=== PATIENT | female | born 1945 | race Caucasian/White ===

== ENCOUNTER 2017-03-24 14:07 | Inpatient (IN) | payer OTHER ==
[~2017-03-24] VITALS: Ht 162.6 cm; Wt 76.5 kg
[2017-03-24 14:10] VITALS: BP 133/83; PULSE 65; RESP 16; O2SAT 96
[2017-03-24] MEDS ORDERED: Ondansetron 2 mg/mL 2 mL Inj IVPUSH ONE (14:25)
--- NOTE | 2017-03-24 14:27 | ED.REPORT ---
HPI-Hip/Pelvis Prob/Inj Date of Service March 24, 2017 ED Provider: Deepak Russo MD History of Present Illness: YouNoodle crashing repeatedly, IT aware Patient is a 71 year old female with a history of hypertension who presents to the ED due to a fall. Associated symptoms include right hip, knee pain and unable to bear weight on the leg. She denies dizziness, lightheadedness, chest pain, shortness of breath, losing consciousness, weakness or numbness. Patient states that the pain is exacerbated by movement. The patient reports that she tripped and twisted while falling on the ground. She is not currently on anticoagulants. Nursing Notes Stated Complaint: FALL, HIP PAIN Chief Complaint: Multiple Trauma/Fall Nursing Notes Reviewed: Yes ([employer] not reconciled) Allergies: Coded Allergies: No Known Allergies (Unverified , 03/24/17) Scheduled Ibuprofen (Ibuprofen) 200 Mg Capsule 200-600 MG PO DAILYWL Krill/Om3/Dha/Epa/Om6/Lip/Astx (Krill Oil 1,000 mg Softgel) 1 Each Capsule 2 EACH PO QAM Metoprolol Tartrate (Metoprolol Tartrate) 25 Mg Tablet 12.5 MG PO BID Scheduled PRN Methyl Salicylate/Menthol (Icy Hot Cream) 35.4 Gm Cream..g. 1 APPLIC TP BID PRN PRN ARTHRITIS TO JOINTS General Time Seen by Provider: 14:20 Chief Complaint Hip injury right Hx Obtained From: Patient Onset Occurred: Just prior to arrival Symptom Duration: Since onset Caused by: Fall on ground Severity: Current: Moderate Associated with: Reports: Unable to walk Recent Healthcare: No recent doctor visit, No recent hospitalization Similar Sx Previous: No Past Medical History Past Medical History Notes: His only medication is metoprolol tartrate 12.5 mg twice a day, and she occasionally takes when necessary Advil for arthritis of the hands Past Medical History Severe aortic stenosis by echocardiogram with cardiology having recommended repair, but the patient is a client based on the fact that she claims she is asymptomatic Patient also has moderate to severe ascending aortic enlargement with mildly dilated arch up to 4.8 cm "Rheumatoid arthritis" of the hands not on any medications aside from occasional Advil Reports: Hypertension Past Surgical History Denies Smoking History Former Smoker (quit years ago) Social History Alcohol Use: Denies alcohol use Drug Use: Denies drug use Other Social History: Good social support, , Local resident Ambulatory Status Independent Review of Systems Musculoskeletal: Reports: Extremity pain (right hip) Neurologic: Reports: Problem walking, Denies: Dizziness, Numbness, Weakness Complete sys rev & neg: except as marked. Respiratory: Denies: Non-productive cough, Shortness of breath Cardiovascular: Denies: Chest pain Physical Exam Initial Vital Signs Vital Signs (First) Date Time Temp Pulse Resp B/P Pulse Ox O2 Delivery O2 Flow Rate FiO2 03/24/17 14:10 36.6 65 16 133/83 96 Room Air Initial VS: Reviewed, Vital signs normal Lower Extremity / Pelvis / MS: Neurologic intact, Vascular intact holding hip, slightly flexed decreased range of motion in pain with movement was unable to bear weight General/Constitutional: Awake, Alert, Well appearing Head / Eyes: Atraumatic, Normocephalic, PERRL, EOMI Respiratory / Chest: Atraumatic, No respiratory distress Back: Atraumatic, Full range of motion Skin: Atraumatic, Color NL, No rash, Warm, Dry Neurologic Neurologic: Oriented X3, Speech NL, No motor deficits, No sensory deficits Upper Extremity / MS: Atraumatic, Full range of motion The patient does have rheumatoid changes of the hands and fingers Psychiatric: Affect NL, Mood NL Interpretation & Diagnostics Lab Results Interpretation Result Diagram: 03/24/17 1440 03/24/17 1440 Test 03/24/17 14:40 03/24/17 15:55 White Blood Count 8.2th/mm3 (3.8-10.1) Red Blood Count 4.03mil/mm3 (3.90-5.20) Hemoglobin 13.4g/dL (12.0-15.6) Hematocrit 38.4% (35.0-46.0) Mean Corpuscular Volume 95.3fL (81-100) Mean Corpuscular Hemoglobin 33.3pg (27.0-35.0) Mean Corpuscular Hemoglobin Concent 34.9% (32.0-37.0) Red Cell Distribution Width 12.0% (12.3-15.4) Platelet Count 183bil/L (150-400) Neutrophils (%) (Auto) 75.5% (40-74) Lymphocytes (%) (Auto) 15.4% (14-46) Monocytes (%) (Auto) 5.2% (4-12) Eosinophils (%) (Auto) 2.9% (0-5) Basophils (%) (Auto) 0.2% (0-3) Hold Purple Top Tube Received (Received) Prothrombin Time 10.2sec (8.1-12.5) Prothromb Time International Ratio 0.95ratio Hold Blue Top Tube Received (Received) Sodium Level 135mEq/L (134-144) Potassium Level 4.2mEq/L (3.5-5.2) Chloride Level 100mEq/L (97-108) Carbon Dioxide Level 20mmol/L (18-29) Blood Urea Nitrogen 18mg/dL (8-27) Creatinine 0.78mg/dL (0.57-1.00) Estimat Glomerular Filtration Rate 104mL/min (>59) Glucose Level 114mg/dL (60-99) Calcium Level 9.4mg/dL (8.5-10.1) Total Bilirubin 0.9mg/dL (0.0-1.2) Aspartate Amino Transf (AST/SGOT) 31U/L (0-50) Alanine Aminotransferase (ALT/SGPT) 19U/L (0-32) Alkaline Phosphatase 61U/L (25-165) Total Protein 7.2g/dL (6.4-8.4) Albumin 4.0g/dL (3.4-5.0) Hold [place] Top Tube Received (Received) Hold See Top Tube Received (Received) Urine Color Yellow (YELLOW) Urine Appearance Clear (CLEAR,HAZY) Urine pH 5.5 (5.0-8.0) Urine Specific [place] 1.020 (1.003-1.035) Urine Protein Negativemg/dL (NEG,TRACE) Urine Glucose (UA) Negativemg/dL (NEGATIVE) Urine Ketones 15mg/dL (NEGATIVE) Urine Occult Blood Trace (NEGATIVE) Urine Nitrite Negative (NEGATIVE) Urine Bilirubin Negative (NEGATIVE) Urine Urobilinogen Normalmg/dL (NORMAL) Urine Leukocyte Esterase Negative (NEGATIVE) Urine RBC 0-2/hpf (0-2) Urine WBC 0-5/hpf (0-5) Urine Epithelial Cells Few/hpf (NONE-MOD) Urine Crystals None seen (NONE SEEN) Urine Bacteria Few/hpf (NONE-FEW) Urine Hyaline Casts None/lpf (NONE) Urine Granular Casts None seen (NONE SEEN) Urine Waxy Casts None seen (NONE SEEN) Urine Red Blood Cell Casts None seen (NONE SEEN) Urine White Blood Cell Casts None seen (NONE SEEN) Urine Mucus None seen (None Seen) Urine Trichomonas None seen (NONE SEEN) Urine Yeast None (NONE SEEN) Urinalysis Comment None Urine Culture Reflexed Not indicated Lab Results Interpretation: CBC normal CMP normal INR normal ECG Interpretation ECG Interpretation: Normal sinus rhythm, Q waves anteriorly, no prior EKG available for me to compare, no acute process identified Time: 15:35 Interpreted by: ED physician Re-Eval/Medical Decision Med Decision/Clinical Course This is a 71-year-old female who tripped and fell landing on her right hip. She denies any other injury, she denied any antecedent symptoms, reports she simply tripped over a raised curb. She denies any other injuries. She has not been unable to ambulate. She is not on any anticoagulants. Her only medication is metoprolol which she takes for "a heart problem" which she just says is asymptomatic valvular disease. The patient is hemodynamically normal. She has severe pain moving her to the gurney, and has pain with motion of the right hip. The leg is neurovascular intact. Radiographs reveal a right intertrochanteric hip fracture per my interpretation. Patient received titrated pain medicine. She is being admitted for further management. The orthopedist is being paged Source of Hx: Old records Re-Evaluation/Progress : Time of Eval: 15:35 Re-Evaluation/Progress Note: Discussed results and plan for admit. The patient understands and agrees to the plan for admit. All questions were addressed. Consultation #1: Referral / Consult Name: Pineda Sierra MD Consulted With: Orthopedic Call Returned at: 15:48 Security Project Manager: Will see patient Note: Requests admission to medicine service. Due to history of aortic stenosis request cardiology consultation for medical clearance prior to operative repair. Consultation #2: Referral / Consult Name: Shelton Wilson MD Consulted With: Cardiology Call Returned at: 16:03 Security Project Manager: Will see patient Note: Discussed consultation request for preoperative clearance in the setting of severe aortic stenosis prior to the patient's going to the OR for orthopedic repair of the right hip Consultation #3: Referral / Consult Name: Osvaldo Macias MD Consulted With: Hospitalist Call Returned at: 16:23 Security Project Manager: Accepts admit Note: Case discussed Differential Diagnosis: Positive: Fx intertrochanteric, Negative: Abrasion, Arterial occlus/ischemia, Cellulitis, Compartment syndrome, Fx acetabulum, Fx sacrum, Hemarthrosis, Laceration, Neurovascular injury, Open fracture, Osteoarthritis, Osteomyelitis Counseled Regarding: Diagnosis, Lab results, Need for admission Discharge & Departure Impression: Primary Impression: Closed intertrochanteric fracture of right hip Encounter type: initial encounter Qualified Code: S72.141A - Displaced intertrochanteric fracture of right femur, initial encounter for closed fracture Additional Impression: Fall from ground level Disposition: ADMITTED TO HOSPITAL Discharge Condition All VS Reviewed: Yes Condition: Stable Referrals: Maggie Rae MD Attestation Portions of this note were transcribed by Lisa Cornelius. I, Dr. Russo personally performed the history, physical exam and medical decision-making; I reviewed and confirmed the accuracy of the information in the transcribed note. Signed by: Shady Oshea, 03/24/17 and 1534 copies to: Maggie Rae MD, Matthew F MD March 24, 2017 14:27 Jenny Cornelius March 24, 2017 14:38
[2017-03-24] MEDS: HYDROmorphone 0.5 mg/0.5 mL iSecure Syringe IVPUSH PRN ×2 (14:46→15:05)
[2017-03-24] MEDS ORDERED: Lidocaine 2% 6mL Topical Jelly TOPICAL ONE (15:35)
[2017-03-24 15:47] LABS: BASOPHILS % (AUTO) 0.2 % (0-3); EOSINOPHILS % (AUTO) 2.9 % (0-5); MONOCYTES % (AUTO) 5.2 % (4-12); Mean Corpuscular Hemoglobin 33.3 pg (27.0-35.0); Mean Corpuscular Volume 95.3 fL (81-100); NEUTROPHILS % (AUTO) 75.5 % (40-74); Platelet Count 183 bil/L (150-400)
[2017-03-24 15:50] LABS: INR 0.95 ratio
[2017-03-24] MEDS ORDERED: METO25TA6 PO (15:59)
[2017-03-24] MEDS ORDERED: KRIL1CAP PO (16:05)
[2017-03-24] MEDS ORDERED: IBUP200C PO (16:05)
[2017-03-24] MEDS ORDERED: METH35.42 TP (16:07)
--- NOTE | 2017-03-24 16:08 | DRSVH ---
PROCEDURE: X-RAY PELVIS W/LAT HIP (RT) ([id number]) INDICATIONS: pain TECHNIQUE: AP pelvis with lateral view(s) of the right hip(s). COMPARISON: None. FINDINGS: Bones: Right intertrochanteric femoral neck fracture with varus attenuation of the distal fragment. N o involvement of the articular surface. Degenerative changes in both hips and the lumbar spine.. Pel chris ring appears intact. No suspicious bony lesions. Soft tissues: The visualized bowel gas pattern is normal. No suspicious soft tissue calcifications. IMPRESSION: Intertrochanteric right femoral neck fracture with varus angulation. Dictated by: Julio César Sotelo M.D. on 03/24/2017 at 16:06 Approved by: Julio César Sotelo M.D. on 03/24/2017 at 16:07
[2017-03-24 16:19] LABS: APPEARANCE,URINE CLEAR (CLEAR,HAZY); COLOR,URINE YELLOW (YELLOW); OCCULT BLOOD,URINE TRACE (NEGATIVE); PH,URINE 5.5 (5.0-8.0); UROBILINOGEN,URINE NORMAL (NORMAL)
[2017-03-24] MEDS ORDERED: Alum-Mag Hydrox-Simeth 30 mL Suspension PO PRN (16:35)
[2017-03-24] MEDS ORDERED: Polyethylene Glycol (PEG) 17 Gm Powder PO PRN (16:35)
[2017-03-24] MEDS ORDERED: Ondansetron 2 mg/mL 2 mL Inj IVPUSH PRN (16:35)
[2017-03-24 16:36] VITALS: BP 131/70; PULSE 73; RESP 17; O2SAT 96
--- NOTE | 2017-03-24 16:42 | DRSVH ---
PROCEDURE: X-RAY RIGHT FEMUR, TWO VIEWS ([id number]) INDICATIONS: fall TECHNIQUE: 3 views of the femur were acquired. COMPARISON: None. FINDINGS: Bones: Intertrochanteric right femoral neck fracture. Severe tricompartment right knee degenerative c hange. Osteopenia.. Soft tissues: No suspicious soft tissue calcifications or masses. IMPRESSION: Intertrochanteric right femoral neck fracture. Severe right knee degenerative change. Ost eopenia. Dictated by: Julio César Sotelo M.D. on 03/24/2017 at 16:29 Approved by: Julio César Sotelo M.D. on 03/24/2017 at 16:40
--- NOTE | 2017-03-24 16:43 | DRSVH ---
PROCEDURE: X-RAY CHEST ONE VIEW, PORTABLE ([id number]) INDICATIONS: preop TECHNIQUE: One view of the chest was acquired. COMPARISON: None. FINDINGS: Surgical changes and devices: None. Lungs and pleura: No pleural effusions or pneumothorax. Lungs are clear. Mediastinum: Mediastinal contours appear normal. Heart size is normal. Bones and chest wall: No suspicious bony lesions. Overlying soft tissues appear unremarkable. IMPRESSION: Negative chest. Dictated by: Julio César Sotelo M.D. on 03/24/2017 at 16:41 Approved by: Julio César Sotelo M.D. on 03/24/2017 at 16:41
--- NOTE | 2017-03-24 16:45 | PCM.HPMED ---
Subjective Date of Service March 24, 2017 Primary Provider: Admitting Physician: Osvaldo Macias MD Primary Care Physician: Sahil Attending Physician: Osvaldo Macias MD Admit Status: From the Emergency Department, Full Admit, Admit to [facility] Team Chief Complaint: Mechanical fall /1 hr History of Present Illness: 69-year-old lady with past medical history of hypertension and aortic stenosis came to emergency room due to mechanical fall. She states she was walking with her sister and dog to see a music event , she fell on the curb due to uneven paving . Sustained injury to right hip. Has pain and swelling on right hip. Denies trauma to other sites. Denies feeling lightheaded before the fall. She has history of aortic stenosis with valve area of 0.6 cm2 on echo done July 2016, Was advised to get valve replacement evaluation but declined She takes metoprolol and she occasionally feels lightheaded but denies feeling lightheaded today Denies fever. Denies urinary complaint. ED course: X-ray showed right intertrochanteric fracture. ED consulted orthopedics. Also consulted cardiology for preop eval Review of Systems: A comprehensive review of systems performed, pertinent positives and negatives included in history of present illness Allergies Coded Allergies: No Known Allergies (Unverified , 03/24/17) Home Medications Metoprolol 12.5 mg.bid PMH Hypertension Aortic stenosis Surgical History None Family History Reviewed and noncontributory Social History Hx Alcohol Use: No Hx Substance Use: No Smoking Status: Former Smoker (quit years ago) Exam Vital Signs Vital Sign - Last Date Time Temp Pulse Resp B/P Pulse Ox O2 Delivery O2 Flow Rate FiO2 03/24/17 16:36 36.8 73 17 131/70 96 Room Air Exam Gen. patient is lying comfortably in hospital bed HEENT: Head is normocephalic atraumatic, Pupils equal and reactive, extraocular movements intact, Lungs clear to auscultation bilaterally Heart regular rate and rhythm without murmurs gallops or rubs Abdomen soft nontender without hepatosplenomegaly Extremities right hip swollen and tender on passive movement Psych alert and oriented to person place and time Neuro cranial nerves II through XII are grossly intact Lymph: There is no lymphadenopathy appreciated in the cervical supra infraclavicular regions : walter in place Lab and Diagnostics Result Diagram: 03/24/17 1440 03/24/17 1440 X-Rays, CTs and MRIs PROCEDURE: X-RAY PELVIS W/LAT HIP (RT) ([id number]) INDICATIONS: pain TECHNIQUE: AP pelvis with lateral view(s) of the right hip(s). COMPARISON: None. IMPRESSION: Intertrochanteric right femoral neck fracture with varus angulation. Dictated by: Julio César Sotelo M.D. on 03/24/2017 at 16:06 PROCEDURE: X-RAY RIGHT FEMUR, TWO VIEWS ([id number]) INDICATIONS: fall IMPRESSION: Intertrochanteric right femoral neck fracture. Severe right knee degenerative change. Osteopenia. Dictated by: Julio César Sotelo M.D. on 03/24/2017 at 16:29 Assessment & Plan 69-year-old lady with past medical history of hypertension and aortic stenosis came to emergency room due to mechanical fall. # Right hip fracture,poa,acute -Pain control with morphine -DVT prophylaxis with Lovenox -ED consulted orthopedics Dr. Sierra # Mechanical fall -no further workup, denies syncope -echo and Ua pending # Critical aortic stenosis -AV 0.6cm2 on echo done 08/27/16 -We will repeat echo -Cardiology Dr. Wilson consulted for preop eval and optimization -Continue metoprolol #Hypertension -Continue metoprolol Patient admitted under inpatient status with expected length of stay > 2 midnights for severity of present symptoms, complexities of treatment plan and risk for adverse events full code,verified with patient Osvaldo Macias MD March 24, 2017 16:45
[2017-03-24 17:17] VITALS: PULSE 70
[2017-03-24 17:24] VITALS: BP 115/71; PULSE 71; RESP 17; O2SAT 97
--- NOTE | 2017-03-24 17:39 | NUR ---
Admission Pt admitted to [facility] unit, 1003, from ED at 1700. Arrived via gurney, 3PA slide transfer to bed, A&Ox3, Limited mobility at RLE d/t hip fx - moves all other extremities, IV patent and infusing, Pain with activity, pillow underneath hip for support, states numbness to hip/top of foot/medial ankle, personal belongings in closet. Oriented to room. Call light in reach. Await ORTHO consult.
[2017-03-24 20:00] VITALS: PULSE 68
--- NOTE | 2017-03-24 20:23 | CONS ---
[address] [address] CONSULTATION REPORT PATIENT: MARTHA VALDEZ : 1945 MR#: [id number] ADMIT: 03/24/2017 JOB ID: [id number] DATE OF SERVICE: INPATIENT ORTHOPEDIC CONSULTATION: CPT code 99264-10, decision for surgery. CHIEF COMPLAINT: This is a 71-year-old female I was asked to see in orthopedic consultation for right basicervical/intertrochanteric femoral fracture. The patient was walking her sister's dog and tripped over the curb and sustained a right basicervical/intertrochanteric femoral fracture. There was no loss of consciousness. Of significance, the patient does have history of severe aortic stenosis but she has been stable on metoprolol. The patient also has history of hypertension. CURRENT MEDICATIONS: Include: 1. Ibuprofen as needed. 2. [place]-3 supplement. 3. Metoprolol 25 mg tablets 1/2 tablet twice a day. PAST MEDICAL HISTORY: Positive for hypertension and severe aortic stenosis. Last cardiac echo was in July 2016 showing severe aortic stenosis with an ejection fracture of 70% to 75% and a mean gradient of 53 mm. SOCIAL HISTORY: The patient lives with her who is 86 years old. She states that she has been asymptomatic on the metoprolol and does work 8-9 hours a day. She denies any shortness of breath or chest pain. Additional medical history positive for rheumatoid arthritis of her hands. She takes occasional Advil. Additional medical problems including severe ascending aortic enlargement with mildly dilated arch up to 4.8 cm. The patient is a former smoker. She does not drink. She ambulates independently. REVIEW OF SYSTEMS: HEENT: No decreased hearing and no decreased vision. Respiratory: No shortness of breath. Cardiovascular: No chest pain. GI: No nausea or vomiting. : No dysuria. Musculoskeletal: Right hip pain secondary to the fracture and unable to bear weight. 162 cm, 74 kg, respirations 16, blood pressure 133/83, pulse ox of 96 on room air. The patient is alert and oriented. She does not appear to be short of breath. Right leg slightly shortened. Peripheral pulses are full. Motor intact. Sensory intact. Skin is intact. The patient is not able to ambulate with the femoral basicervical/intertrochanteric fracture. LABORATORY TESTING: White count of 8200, hemoglobin 13.4, hematocrit 38.4, platelet count a 183,000. Neutrophil percentage slightly elevated at 75.5. Sodium 135, potassium 4.2, chloride 100, CO2 20, BUN 18, creatinine 0.78. Random glucose at 114. Liver function tests within normal limits. PT 10.2, INR 0.95. Urine is clear with no bacteria. Chest x-ray shows no acute pulmonary issues. Right basicervical/intertrochanteric femoral fracture. Some degenerative changes noted in both hips and lumbar spine. IMPRESSION: Right basicervical/intertrochanteric femoral fracture displaced. Severe aortic stenosis and also aortic aneurysm. PLAN: I have explained the risks and benefits of surgery to the patient and her family. There is a risk for bleeding, infection, pain and stiffness, possibility for damage to surrounding neurovascular structures, potential for delayed union, nonunion, malunion, and hardware failure. There is also potential for dislocation of the prosthesis. They are also aware of the risk for DVT, pulmonary emboli, potential significant cardiopulmonary event or even possible stroke. They will need to have preoperative medical clearance from Cardiology and I have spoken to Anesthesiology and will also order a repeat cardiac echo. Patient will need to be n.p.o. after midnight. We will have blood available in the blood bank if needed. CC: [facility]
[2017-03-24 21:22] VITALS: BP 108/65; PULSE 65; RESP 18; O2SAT 96
[2017-03-25] VITALS (11 sets, daily range): BP systolic 101–148; BP diastolic 59–74; PULSE 66–89; RESP 13–20; O2SAT 92–98
--- NOTE | 2017-03-25 01:31 | NUR ---
HR donor technician reports 5.3 second run of SVT with Hr as high as 160bpm. MOY bonilla page sent to night hospitalist. Patient asymptomatic will continue to monitor at this time.
[2017-03-25 05:31] LABS: BASOPHILS % (AUTO) 0.3 % (0-3); EOSINOPHILS % (AUTO) 2.6 % (0-5); MONOCYTES % (AUTO) 5.6 % (4-12); Mean Corpuscular Hemoglobin 33.1 pg (27.0-35.0); NEUTROPHILS % (AUTO) 78.2 % (40-74); Platelet Count 151 bil/L (150-400)
[2017-03-25 05:52] LABS: Magnesium 1.9 mg/dL (1.6-2.6)
[2017-03-25] MEDS ORDERED: CeFAZolin Inj 2 GM in Dextrose 5%-Pha MIX 50 ML IV ONE (06:00)
[2017-03-25] MEDS ORDERED: MeTOProlol 1 mg/mL 5 mL Inj ONE (06:38)
[2017-03-25] MEDS ORDERED: Phenylephrine/NS 100 mCg/mL 10 mL Syringe IVPUSH ONE (06:38)
[2017-03-25] MEDS ORDERED: Dexamethasone 4 mg/mL Inj ONE (06:38)
[2017-03-25] MEDS ORDERED: Ondansetron 2 mg/mL 2 mL Inj ONE (06:38)
[2017-03-25] MEDS ORDERED: fentaNYL-PF 50 mCg/mL 2 mL Inj ONE (06:38)
[2017-03-25] MEDS ORDERED: Propofol 10,000 mCg/mL 20 mL Inj ONE ×2 (06:38→06:41)
[2017-03-25] MEDS ORDERED: Ropivacaine-PF 0.5% 30 mL Inj ONE (06:41)
--- NOTE | 2017-03-25 09:37 | PCM.PNMED ---
Subjective Date of Service March 25, 2017 Subjective pain is well controlled, denied SOB, cough, sensory intact on legs denied dizziness, chest pain, awaits TTE, cardiology preop assessment Exam Vital Signs Vital Sign - Last Date Time Temp Pulse Resp B/P Pulse Ox O2 Delivery O2 Flow Rate FiO2 03/25/17 05:20 36.5 82 16 116/70 95 Room Air Intake and Output 03/24/17 03/24/17 03/25/17 Cumulative From/Thru 15:00 23:00 07:00 03/24/17 14:10 - 03/25/17 05:20 Intake Total 100 ml 600 ml 700 ml Output Total 550 ml 1750 ml 2300 ml Balance -450 ml -1150 ml -1600 ml Intake Oral 100 ml 600 ml 700 ml Output Urine Total 550 ml 1750 ml 2300 ml # Bowel Movements 0 0 0 Exam NAD, comfortable RRR, Gr3 systolic M, ejction at RUSB, CTAB no w,c S,ND,NT,BS+ warm, no edema IVs and Medications Medications Reviewed: Medications were reviewed in detail Lab and Diagnostics Result Diagram: 03/25/17 0503 03/25/17 0503 X-Rays, CTs and MRIs PROCEDURE: X-RAY PELVIS W/LAT HIP (RT) ([id number]) INDICATIONS: pain TECHNIQUE: AP pelvis with lateral view(s) of the right hip(s). COMPARISON: None. IMPRESSION: Intertrochanteric right femoral neck fracture with varus angulation. Dictated by: Julio César Sotelo M.D. on 03/24/2017 at 16:06 PROCEDURE: X-RAY RIGHT FEMUR, TWO VIEWS ([id number]) INDICATIONS: fall IMPRESSION: Intertrochanteric right femoral neck fracture. Severe right knee degenerative change. Osteopenia. Dictated by: Julio César Sotelo M.D. on 03/24/2017 at 16:29 Assessment & Plan 69-year-old lady with past medical history of hypertension and aortic stenosis came to emergency room due to mechanical fall. # Right hip fracture,poa,acute -Pain control with morphine -DVT prophylaxis with Lovenox -ED consulted orthopedics Dr. Sierra, tentative plan for surgery today # Mechanical fall -no further workup, denies syncope -echo pending # Critical aortic stenosis -AV 0.6cm2 on echo done 08/27/16 -awaits TTE today -Cardiology Dr. Wilson consulted for preop eval and optimization -Continue metoprolol #Hypertension -Continue metoprolol dispo: based on postop course full code,verified with patient VTE Mechanical Devices: Intermittant Pneumatic CD Time spent 65min Zabrina Rodrigez MD March 25, 2017 09:30
--- NOTE | 2017-03-25 10:00 | DRSVH ---
[facility] [address] [place] [address] Echocardiogram Report Name: MARTHA VALDEZ Date: 03/25/2017 Height: 64 in Hospital Exam Location: [facility] Weight: 165 lb Gender: Female BSA: 1.8 m2 : 1945 Age: 71 yrs BP: 116/70 mmHg Reason For Study: AORTIC STENOSIS, PRE-OP EVAL Ordering Physician: HOSPITALIST [facility] Performed By: Jaclyn May Referring Physician: Maggie Rae Interpretation Summary 1) Small left ventricular cavity with moderate concentric left ventricular hypertrophy and hyperdynamic systolic function (EF 70-75%). 2) Normal right ventricular size and function. 3) Severe calcific aortic stenosis present (valve area 0.75cm2, mean gradient 73mmHg, severity ratio 0.22). 4) Moderate to severely enlarged ascending aorta (diameter 4.8cm). 5) Compared to the Echo done 08/27/2016, mean gradient across the aortic valve and severity ratio are both higher on today's study suggesting progression of severe aortic stenosis. Procedure: A two-dimensional transthoracic echocardiogram with color flow and Doppler was performed. The study quality was technically adequate. Study is performed with patient supine due to right side injury. Comparison is made with the echocardiogram of 08-27-2016. The patient was in normal sinus rhythm during the exam. Left Ventricle: The left ventricular cavity is small. The LVOT diameter is 2.1 cm. There is mild-moderate concentric left ventricular hypertrophy. The ejection fraction is estimated to be 70-75%. The left ventricle is hyperdynamic. Left ventricular wall motion is normal. Spectral Doppler of the mitral valve is reversed, with an E/A wave ratio < 1.0. Right Ventricle: The right ventricle is normal in size and function. Atria: There is no Doppler evidence for an atrial septal defect. Mitral Valve: The mitral valve leaflets appear mildly thickened, but open well. There is mild to moderate mitral annular calcification. There is no mitral regurgitation. Aortic Valve: The aortic valve is not well visualized. The aortic valve is severely calcified. There is severe aortic stenosis. The calculated aortic valve area is 0.8 cm2. The peak aortic velocity is 5.5 m/sec. The aortic valve mean gradient is 73 mmHg. The peak aortic velocity on the previous exam was 4.8 m/sec. There is mild aortic regurgitation. Tricuspid Valve: The tricuspid valve leaflets are thin and pliable. There is mild tricuspid regurgitation. The right ventricular systolic pressure is estimated at 29 mmHg assuming a right atrial pressure of 3 mm Hg. Pulmonic Valve: The pulmonic valve is not well seen, but is grossly normal. There is a trace or physiologic amount of pulmonic regurgitation. Great Vessels: The aortic root is normal size. The ascending aorta is moderate-severely enlarged. The pulmonary artery is normal size. The IVC is of normal diameter and collapses greater than 50% with a sniff. This suggests a low right atrial pressure of 3 mm Hg. Pericardium/ Pleura There is no pericardial effusion. There is no pleural effusion. MMode/2D Measurements & Calculations LVIDd: 3.7 cm LA dimension: 3.7 cm RA long axis LVOT diam: 2.1 cm LVIDs: 2.2 cm Ao root diam FS: 39.6 % LA A4 area: 17.1 cm RA area EPSS: 0.42 cm LA length (vol) Aortic Jxn: 3.3 cm IVSd: 1.4 cm : 15.6 cm asc Aorta Diam LVPWd: 1.3 cm IVC diam: 1.8 cm RA vol : 43.4 ml Ao Arch Diam (Prox RA Trans): 3.6 cm : 24.1 mm2 LV orourke. diameter/BSA LV sys. diameter/BSA RVD2 (mid) (cm/m^2): 2.0 (cm/m^2): 1.2 : 3.1 cm Doppler Measurements & Calculations Ao V2 max MV E max linden MV E/A: 0.67 TR max linden : 551.2 cm/sec : 93.2 cm/sec Med Peak E' Linden : 255.9 cm/sec Ao max PG MV A max linden TR max PG : 121.5 mmHg : 138.9 cm/sec E/E' med: 17.4 : 26.2 mmHg Ao mean PG MV P1/2t: 116.9 msec Lat Peak E' Linden PA V2 max : 73.4 mmHg MVA(VTI): 2.9 cm2 : 100.9 cm/sec LVOT Max Linden E/E' lat: 13.3 PA mean PG : 126.3 cm/sec E/e' average: 15.3 JOON(I,D): 0.75 cm Pulm A Revs Dur PA Accel Time sev ratio : 0.09 sec MV A dur: 0.14 sec AI P1/2t : 423.8 msec AI dec slope : 261.4 cm/s2c MV V2 mean MV P1/2t max linden Ao V2 mean LV V1 max PG : 72.7 cm/sec : 408.7 cm/sec MV mean PG MVA(P1/2t): 1.9 cm2 Ao V2 VTI: 131.5 cm LV V1 VTI JOON(V,D): 0.76 cm2 : 29.5 cm MV V2 VTI: 33.3 cm MV dec time : 0.40 sec PA V2 mean JOON indexed to BSA Pulm A Revs Dur - MV : 73.9 cm/sec (cm^2/m^2): 0.41 A Dur: -0.01 msec Reading Physician:10:00 AM
--- NOTE | 2017-03-25 10:38 | PCM.CHPCAR ---
Consult Subjective Date of service March 25, 2017 Date of admit March 24, 2017 at 16:21 Provider Requesting Consult Requesting Provider: Pineda Sierra MD Primary Care Physician Primary Care Physician: Devincp Chief Complaint severe aortic stenosis in the setting of acute right hip fracture History of Present Illness 71 year old woman history of severe aortic stenosis and ascending aortic aneurysm admitted with right hip fracture. Patient states that she was walking with her sister's dog yesterday when she tripped and fell. There was no loss of consciousness but she couldn't move due to her hip pain and inability to move her right leg after the fall. Her evaluation showed right basicervical/ intertrochanteric femoral fracture. She is eager to have her hip surgery done. At baseline, patient states that she works 9 hours day in a [employer] and is on her feet most of her time. Denies chest pain, dyspnea, lightheadedness, or syncope. She is followed closely by Dr. Rae. Review of Systems Review of Systems per HPI and otherwise unremarkable PMH Past Medical History # Severe aortic stenosis: likely from bicuspid valve # Ascending aortic aneurysm: likely from bicuspid valve # HTN Scheduled Ibuprofen (Ibuprofen) 200 Mg Capsule 200-600 MG PO DAILYWL (Reported) Krill/Om3/Dha/Epa/Om6/Lip/Astx (Krill Oil 1,000 mg Softgel) 1 Each Capsule 2 EACH PO QAM (Reported) Metoprolol Tartrate (Metoprolol Tartrate) 25 Mg Tablet 12.5 MG PO BID (Reported ) Scheduled PRN Methyl Salicylate/Menthol (Icy Hot Cream) 35.4 Gm Cream..g. 1 APPLIC TP BID PRN PRN ARTHRITIS (Reported) TO JOINTS Current Inpatient Medications Current Medications Hydromorphone HCl 0.5 mg Q15MIN PRN IVPUSH Last administered on 03/24/17t 15:05 ; Admin Dose 0.5 MG; Start 03/24/17 at 14:25; Stop 03/25/17 at 14:26 Al Hydrox/Mg Hydrox/Simethicone 30 ml Q6H PRN PO; Start 03/24/17 at 16:35 Ondansetron HCl 4 to 8 mg Q4H PRN IVPUSH; Start 03/24/17 at 16:35 Senna 17.2 mg BID PRN PO; Start 03/24/17 at 16:35 Polyethylene Glycol 17 gm DAILY PRN PO; Start 03/24/17 at 16:35 Morphine Sulfate 1-2 mg Q3H PRN IVPUSH Last administered on 03/25/17t 08:12; Admin Dose 2 MG; Start 03/24/17 at 16:40 Enoxaparin Sodium 40 mg DAILY SUBQ; Start 03/25/17 at 08:30 Allergies: Coded Allergies: No Known Allergies (Unverified , 03/24/17) Social History Hx Alcohol Use: NoHx Substance Use: No Smoking Status: Former Smoker (quit years ago) Exam Vital Signs Vital Sign - Last Date Time Temp Pulse Resp B/P Pulse Ox O2 Delivery O2 Flow Rate FiO2 03/25/17 05:20 36.5 82 16 116/70 95 Room Air Intake and Output 03/24/17 03/24/17 03/25/17 Cumulative From/Thru 14:59 22:59 06:59 03/24/17 14:10 - 03/25/17 05:20 Intake Total 100 ml 600 ml 700 ml Output Total 550 ml 1750 ml 2300 ml Balance -450 ml -1150 ml -1600 ml Intake Oral 100 ml 600 ml 700 ml Output Urine Total 550 ml 1750 ml 2300 ml # Bowel Movements 0 0 0 General appearance: No apparent distress, well-nourished, pleasant, cooperative HEET: Normocephalic, atraumatic, no scleral icterus, mucous membranes moist. Right pupil dilated. Neck: Supple, no JVD Cardiovascular: RRR, normal S1 and soft S2, +3/6 late peaking systolic murmur radiating to carotids b/l, no rubs/gallops, PMI nondisplaced, no peripheral edema Respiratory: Good aeration, CTAB Abdomen: Soft, nontender, nondistended, + bowel sounds Neuro: Alert, no facial droop, tongue midline, patient immobile due to immobilization Psych: Appropriate affect Skin: No rashes on face, neck, and arms Lab and Diagnostics Result Diagram: 03/25/17 0503 03/25/17 0503 X-Rays, CTs and MRIs Echo 03/25/2017: 1) Small left ventricular cavity with moderate concentric left ventricular hypertrophy and hyperdynamic systolic function (EF 70-75%). 2) Normal right ventricular size and function. 3) Severe calcific aortic stenosis present (valve area 0.75cm2, mean gradient 73mmHg, severity ratio 0.22). 4) Moderate to severely enlarged ascending aorta (diameter 4.8cm). 5) Compared to the Echo done 08/27/2016, mean gradient across the aortic valve and severity ratio are both higher on today's study suggesting progression of severe aortic stenosis. 12-lead ECG ECG shows sinus rhythm Assessment & Plan Assessment 71 year old woman h/o severe aortic stenosis and ascending aortic enlargement admitted with acute right hip fracture after a fall: # Severe aortic stenosis. Patient's physical exam and echo today are consistent with severe aortic stenosis. Etiology is suspected to be bicuspid aortic valve based on relatively young age of the patient and ascending aorta enlargement. Patient's primary pipe turner, Dr. Rae, also felt the same way as documented in her last note. Thankfully, patient has been asymptomatic from her aortic stenosis despite being fairly active (including working) for her age. Her LV function is normal. In the past, elevated risk elective non- cardiac surgery was deferred in patients with severe aortic stenosis. However, recent ACC-AHA guidelines give class IIa indication for elective non-cardiac surgery in asymptomatic severe aortic stenosis and state "elevated-risk elective noncardiac surgery with appropriate intraoperative and postoperative hemodynamic monitoring is reasonable in adults with asymptomatic severe aortic stenosis." Patient's needs for surgery is urgent and I think patient can proceed with surgery with close hemodynamic monitoring intraoperatively and postoperatively. The risk of significant cardiovascular complications, including , is in the range of 5-10%. Recommendations as discuss with the patient, anesthesiologist, and the orthopedic surgeon are as below: - Ensure good IV access prior to surgery - Place an arterial line for close hemodynamic monitoring during and immediately post surgery. Avoid hypotension and significant hypertension. - Recommend monitoring the patient in the ICU the first night post surgery with the arterial line - Defer need for aortic valve replacement to when patient is symptomatic from her severe aortic stenosis # Ascending aortic enlargement: stable based on echo. Suspected etiology is bicuspid aortic valve. Patient's risk of aortic dissection is low as the diameter of the ascending aorta is 4.8cm. Continue to work with cardiology as outpatient. # HTN: management per hospitalist. # Right basicervical/intertrochanteric femoral fracture: defer management to the orthopedic surgeon. Recommend continued optimal pain control. VTE Mechanical Devices: Intermittant Pneumatic CD Shelton Wilson MD March 25, 2017 10:38
--- NOTE | 2017-03-25 13:35 | NUR ---
Social Work: Initial Assessment D: EMR reviewed. Pt is a 71 y/o female admitted for right hip fracture per H&P. MARÍA ELENA met with pt and family at bedside to conduct initial assessment. Pt was alert and oriented x3. MARÍA ELENA explained role and wrote phone number on white board. MARÍA ELENA provided DPOA/advanced directive ppw at pt's request and encouraged pt to provide a copy to the hospital when complete. Pt's insurance is [employer] ([employer]). MARÍA ELENA is scheduling appointment at [facility] for a new PCP. MARÍA ELENA will follow-up with pt once appointment has been scheduled. Pt's primary contact is spouse Michael Magana ([phone]) and can be contacted for discharge planning. Pt has no Hx of HH or SNF. Pt does not have LTC or VA insurance. Pt is independent with ADLs. Pt does not use any DME. Pt lives in a mobile home with 3 steps to enter. Pt drives. Pt is independent at baseline. MARÍA ELENA received order from MD to discuss rehabilitation options secondary to pt's hip fracture. MARÍA ELENA provided pt with choice list. Pt chose [facility]. MARÍA ELENA faxed PASSR, gave access, and made referral. Hany from [facility] will work to see if pt's insurance will authorize her stay. A: Pt for whom a SNF has been deemed medically necessary. P: MARÍA ELENA placed referral to [facility], faxed PASSR, and gave access. MARÍA ELENA will follow-up with [facility] to see if pt's insurance will cover her stay. MARÍA ELENA to update pt and family once [facility] has reached a decision. JAMA Uriostegui Addendum: 03/25/17 at 1343 by TAL JOHNSON Amended: Links added.
--- NOTE | 2017-03-25 14:30 | NUR ---
Off Unit to OR at 1430; left OSC unit via bed. A&Ox3, HILLIARD, Consent signed, Tammi patent, Tele, IV at TKO, VS, No pain c/o at rest. Report given to OR nurse prior to pt pickup.
[2017-03-25] MEDS ORDERED: Lactated Ringer's 1,000 ML IV ONE (14:46)
[2017-03-25] MEDS ORDERED: Lactated Ringer's 1,000 ML IV SCH (16:13)
[2017-03-25] MEDS ORDERED: Lactated Ringer's 500 ML IV PRN (16:13)
--- NOTE | 2017-03-25 16:13 | PCM.HPANE ---
Patient Data Surgeon Admitting Provider:Osvaldo Macias MD Attending Provider:Osvaldo Macias MD Primary Care Physician:Sahil Other Provider:Ashu Garcia Anesthesia Reason for Visit Right Hip Fracture RIGHT HIP FRACTURE Ht/WT & BMI Height (Feet): 5 Height (Inches): 4.00 Weight (Kilograms): 75.000 Body Mass Index 27.85 Allergies Coded Allergies: No Known Allergies (Unverified , 03/24/17) Past Anesthesia History Anesthesia History: Denies:: Abnormal Airway, Anesthesia Reactions, Difficult Intubation, Fam Anesthesia Reaction, Fam Malignant Hypertherm, Malignant Hyperthermia Diabetes History Hx Diabetes?: No MRSA MRSA: No Medications Reported Medications Methyl Salicylate/Menthol (Icy Hot Cream)35.4 Gm Cream..g.1 Applic TP BID PRN ARTHRITIS TO JOINTS 03/24/17 Krill/Om3/Dha/Epa/Om6/Lip/Astx (Krill Oil 1,000 mg Softgel)1 Each Capsule2 Each PO QAM 03/24/17 Ibuprofen 200 Mg [id number] Mg PO DAILYWL Ref 0 03/24/17 Metoprolol Tartrate 25 Mg Yybqcp70.5 Mg PO BID 30 Days Ref 0 03/24/17 History History of ENT Problems?: No HEENT History: Denies:: Abnormal Airway Cataracts Difficult Intubation Dysphagia Glaucoma Hearing Problem Sinus Problem TMJ Denture Type: None Teeth Condition: Broken Teeth Hx of Heart Problems?: Yes Cardiovascular History: Positive for:: Edema (BLE trace occ'l) Heart Murmur Hypertension Denies:: Cardiac Surgery Chest Pain Congestive Heart Failure Irregular Heartbeat Pacemaker Thrombophlebitis Other History/Comments critical/severe . See cardiology consult and TTE. Asymptomatic and quite active. Normal EF. No hx CAD Hx of Respiratory Problem?: Yes Respiratory History: Positive for:: Pneumonia (walking pneumonia 1991) Denies:: Asthma COPD Chest Surgery Dyspnea Emphysema Hemoptysis Tuberculosis Other Resp Pertinent History: whooping cough at 15yrs old Hx Neurologic Problems?: Yes Neurological History: Positive for:: Dizziness (d/t metoprolol) Hx of GI Problems?: No Hx of Problems?: No Female Hx: Denies:: Currently Pelvic Inflammatory Problems with Breasts? Hx Musculoskeletal Problems?: Yes Hx Surgeries?: No Hx Any Other Health Problems?: No Hx Diabetes: No Hx Alcohol Use: NoHx Substance Use: No Smoking Status: Former Smoker (quit years ago) Stop/Bang Treated for Sleep Apnea?: No Do You Have a CPAP Machine?: No S-Snoring: Do You Snore Loudly: Yes T-Tired: feel tired, fatigued: No O-Obsered: Observed not breath: No P-Blood Pressure: treated: Yes B- Body Mass Index > 35 kg/m2: No A- Age over 50: Yes N- Neck Large Circumference: No G- Gender Male: No JESSICA Total Score: 2 Risk Assessment Category Category 1A: Patient has history of documented sleep apnea, and HAS NOT received any narcotic, sedative or anesthesia administration during this stay. Category 1B: Patient has history of documented sleep apnea, and HAS received any narcotic , sedative or anesthesia administration during this stay Category 2: Patient has SUSPECTED Obstructive Sleep Apnea, and HAS received any narcotic , sedative or anesthesia administration during this stay. Category 3: Patient has SUSPECTED Obstructive Sleep Apnea and HAS NOT received narcotic, sedative or anesthesia administration during this stay. Category 4: Outpatient in Procedural Areas with known sleep apnea or who screen positive for High Risk via the STOP/BANG questionnaire. Exam Exam Vital Signs Vital Signs Date Time Temp Pulse Resp B/P Pulse Ox O2 Delivery O2 Flow Rate FiO2 03/25/17 05:20 36.5 82 16 116/70 95 Room Air General Appearance: Alert, Oriented X3 HEENT/AIRWAY: MP 2, Neck Movement (FROM) Lungs: Clear to Auscultation, Clear to Percussion Heart: Exam Unremarkable, Regular Rate/Rhythm Meds/Labs/Diagnostics Admission Meds Current Medications Ondansetron HCl (Zofran Inj) 8 mg ONCE ONCE IVPUSH Last administered on 14:46; Start 03/24/17 at 14:25; Stop 03/24/17 at 14:26; Status DC Lidocaine HCl 6 ml 6 ml ONCE ONCE TOPICAL Last administered on 03/24/17 15:51 ; Start 03/24/17 at 15:35; Stop 03/24/17 at 15:36; Status DC Cefazolin Sodium/ Dextrose/Water (Ancef Inj/D5W Pharmacy To Mix) 50 ml @ 100 mls/hr PREOP ONCE IV Last administered on 03/25/17 05:17; Start 5/29/17 at 06:00; Stop 03/25/17 at 06:29; Status DC Labs Test 03/24/17 14:40 03/24/17 15:55 03/25/17 05:03 Hold Purple Top Tube Received (Received) Prothrombin Time 10.2sec (8.1-12.5) Prothromb Time International Ratio 0.95ratio Hold Blue Top Tube Received (Received) Hold [place] Top Tube Received (Received) Hold See Top Tube Received (Received) Urine Color Yellow (YELLOW) Urine Appearance Clear (CLEAR,HAZY) Urine pH 5.5 (5.0-8.0) Urine Specific [place] 1.020 (1.003-1.035) Urine Protein Negativemg/dL (NEG,TRACE) Urine Glucose (UA) Negativemg/dL (NEGATIVE) Urine Ketones 15mg/dL (NEGATIVE) Urine Occult Blood Trace (NEGATIVE) Urine Nitrite Negative (NEGATIVE) Urine Bilirubin Negative (NEGATIVE) Urine Urobilinogen Normalmg/dL (NORMAL) Urine Leukocyte Esterase Negative (NEGATIVE) Urine RBC 0-2/hpf (0-2) Urine WBC 0-5/hpf (0-5) Urine Epithelial Cells Few/hpf (NONE-MOD) Urine Crystals None seen (NONE SEEN) Urine Bacteria Few/hpf (NONE-FEW) Urine Hyaline Casts None/lpf (NONE) Urine Granular Casts None seen (NONE SEEN) Urine Waxy Casts None seen (NONE SEEN) Urine Red Blood Cell Casts None seen (NONE SEEN) Urine White Blood Cell Casts None seen (NONE SEEN) Urine Mucus None seen (None Seen) Urine Trichomonas None seen (NONE SEEN) Urine Yeast None (NONE SEEN) Urinalysis Comment None Urine Culture Reflexed Not indicated White Blood Count 7.7th/mm3 (3.8-10.1) Red Blood Count 3.78mil/mm3 (3.90-5.20) Hemoglobin 12.5g/dL (12.0-15.6) Hematocrit 36.3% (35.0-46.0) Mean Corpuscular Volume 96.0fL (81-100) Mean Corpuscular Hemoglobin 33.1pg (27.0-35.0) Mean Corpuscular Hemoglobin Concent 34.4% (32.0-37.0) Red Cell Distribution Width 11.8% (12.3-15.4) Platelet Count 151bil/L (150-400) Neutrophils (%) (Auto) 78.2% (40-74) Lymphocytes (%) (Auto) 12.9% (14-46) Monocytes (%) (Auto) 5.6% (4-12) Eosinophils (%) (Auto) 2.6% (0-5) Basophils (%) (Auto) 0.3% (0-3) Sodium Level 137mEq/L (134-144) Potassium Level 3.6mEq/L (3.5-5.2) Chloride Level 103mEq/L (97-108) Carbon Dioxide Level 21mmol/L (18-29) Blood Urea Nitrogen 16mg/dL (8-27) Creatinine 0.66mg/dL (0.57-1.00) Estimat Glomerular Filtration Rate 126mL/min (>59) Glucose Level 114mg/dL (60-99) Calcium Level 8.3mg/dL (8.5-10.1) Magnesium Level 1.9mg/dL (1.6-2.6) Total Bilirubin 0.7mg/dL (0.0-1.2) Aspartate Amino Transf (AST/SGOT) 19U/L (0-50) Alanine Aminotransferase (ALT/SGPT) 12U/L (0-32) Alkaline Phosphatase 55U/L (25-165) Total Protein 5.8g/dL (6.4-8.4) Albumin 3.4g/dL (3.4-5.0) Plan Impression Patient chart reviewed, patient interviewed and anesthestic plan with risks, benefits, and alternatives discussed, and informed consent obtained. ASA Physical Status: ASA4 Life Threatening (critical ) Anesthetic Support Modalities: Arterial Line Anesthetic Plan: GA, Regional Block (femoral nerve block for post-op pain control) Bene/Risks/Altern/Consents: Yes HP Complete Prior to Induction: Yes Other Femoral nerve block requested by surgeon for post-op pain control and pt. consented. A-line prior to induction Samuel Appiah MD March 25, 2017 10:43
[2017-03-25] MEDS ORDERED: Phenylephrine 10,000 mCg/mL Inj IVPUSH PRN (16:15)
[2017-03-25] MEDS ORDERED: Ondansetron 2 mg/mL 2 mL Inj IVPUSH PRN (16:15)
[2017-03-25] MEDS ORDERED: EPHEDrine Sulfate 50 mg/mL Inj IVPUSH PRN (16:15)
[2017-03-25] MEDS ORDERED: HYDROmorphone 1 mg/mL Inj IVPUSH PRN (16:15)
[2017-03-25] MEDS ORDERED: MetoCLOpramide 5 mg/mL 2 mL Inj IVPUSH PRN (16:15)
[2017-03-25] MEDS ORDERED: Labetalol 5 mg/mL 4 mL Inj IV PRN (16:15)
[2017-03-25] MEDS ORDERED: Atropine 0.4 mg/mL Inj IVPUSH PRN (16:15)
[2017-03-25] MEDS ORDERED: Bupivacaine-MPF 0.5% 30 mL Inj INFILTRATE ONE (17:44)
--- NOTE | 2017-03-25 18:09 | DRSVH ---
PROCEDURE: X-RAY RIGHT HIP COMPLETE, MINIMUM TWO VIEWS ([id number]) INDICATIONS: C-ARM ASSISTED RIGHT HIP ORIF TECHNIQUE: Multiple intraoperative views of the hip were acquired. COMPARISON: None. FINDINGS: Multiple intraoperative views of the hip demonstrate dynamic hip screw placement and anatomic alignme nt. IMPRESSION: Right hip ORIF. Dictated by: Fabrice Kelley M.D. on 03/25/2017 at 18:07 Approved by: Fabrice Kelley M.D. on 03/25/2017 at 18:07
[2017-03-25] MEDS: Acetaminophen IV 1,000 MG in IV Premix 1 EACH IV SCH ×2 (18:15→19:18)
[2017-03-25] MEDS: fentaNYL-PF 50 mCg/mL 2 mL Inj IVPUSH PRN ×3 (18:30→19:12)
--- NOTE | 2017-03-25 19:01 | DRSVH ---
PROCEDURE: X-RAY PELVIS W/LAT HIP (RT) ([id number]) INDICATIONS: s/p right hip ORIF TECHNIQUE: AP pelvis with lateral view(s) of the right hip(s). COMPARISON: [facility], CR, XR PELVIS W LATERAL HIP RT, 03/24/2017, 14:37. [facility], CR, XR HIP 2VW RT, 03/25/2017, 15:48. FINDINGS: Bones: Status post ORIF of the right hip. Alignment is anatomic. Soft tissues: The visualized bowel gas pattern is normal. No suspicious soft tissue calcifications. IMPRESSION: Right hip ORIF. Dictated by: Fabrice Kelley M.D. on 03/25/2017 at 18:59 Approved by: Fabrice Kelley M.D. on 03/25/2017 at 18:59
--- NOTE | 2017-03-25 19:48 | PCM.ANEP1 ---
Post Anesthesia PACU Phase 1 Assessment Vital Signs Vital Signs Date Time Temp Pulse Resp B/P Pulse Ox O2 Delivery O2 Flow Rate FiO2 03/25/17 19:25 37.2 86 18 101/59 98 Nasal Cannula 2 03/25/17 19:10 86 18 110/61 97 Nasal Cannula 2 03/25/17 18:55 84 15 116/66 97 Nasal Cannula 2 03/25/17 18:40 80 13 117/68 97 Nasal Cannula 2 03/25/17 18:25 84 16 120/66 96 Nasal Cannula 2 03/25/17 18:20 86 18 114/65 95 Simple Mask 10 03/25/17 18:12 36.4 87 20 116/74 94 Simple Mask 10 Anesthetic Administered: GA Level of Alertness: Awake, talking HILLIARD's with Equal Strength: Yes Pain: No Pain Scale Score: 10 (Although pt appears comfortable) Nausea or Vomiting: No CV Function & Hydration Stable: No Airway Device: None Oxygen Delivery: Simple Mask Lungs: Clear to Auscultation, Clear to Percussion PACU Phase 2 Assessment Complications: No Follow up Care: No Patient Instructions Provided: N/A Samuel Appiah MD March 25, 2017 19:48
--- NOTE | 2017-03-25 22:27 | OP ---
[address] [address] OPERATIVE REPORT PATIENT: MARTHA VALDEZ : 1945 MR#: [id number] ADMIT: 03/24/2017 JOB ID: [id number] DATE OF SURGERY: 03/25/2017 PREOPERATIVE DIAGNOSIS(ES): Right basicervical/intertrochanteric femoral fracture. POSTOPERATIVE DIAGNOSIS(ES): Right basicervical/intertrochanteric femoral fracture. PROCEDURE: Open reduction, internal fixation right basicervical/intertrochanteric femoral fracture with a locked intramedullary femoral fede. CPT code 33139. IMPLANTS UTILIZED: Synthes trochanteric femoral nail 11 mm diameter x 170 mm length and 125 degrees angle. A 95 mm compression screw and 36 mm distal interlocking screw. SURGEON: Pineda Sierra MD. ANESTHESIA: General with supplemental femoral nerve block for additional pain medication. METAPHYSICS TEACHER: Clementina Sparks PA-C. Clementina Sparks PA-C was an integral part of the procedure in order to proceed expeditiously with treatment of the fracture in this patient with severe aortic stenosis. She was instrumental in helping obtain and maintain reduction and with assistance with wound closure. PROCEDURE IN DETAIL: Under adequate femoral nerve block and general anesthetic, the patient was carefully placed from her bed to the fracture table. Both legs were placed in traction boots. The left leg was placed in a scissor technique in order to provide good visualization for the right intertrochanteric basicervical femoral fracture. X-rays confirmed good position of the right intertrochanteric basicervical fracture once she was placed on the fracture table in slight traction. After appropriate time-out was called, the right hip was prepped and draped in sterile fashion. Incision was fashioned just proximal to the tip of the greater trochanter. Incision was carried down to the tensor fascia daya. Utilizing blunt dissection, the proximal portion of the greater trochanter was identified. A guide pin was placed in the proximal portion of the greater trochanter with the lateral trochanteric femoral entry site. Utilizing the parallel alignment guide an additional K-wire was placed and this was noted to be more central in both AP and lateral directions. The original guide pin was subsequently removed. The opening reamer was then utilized to over-ream the guide pin proximally. A ball-tip guide was placed down the femur to ease the positioning and placement of the short trochanteric femoral nail. An 11 mm diameter x 170 mm length 125 degrees angle Synthes short lateral trochanteric femoral nail was then placed in the proximal portion of the femur. It was tapped in position. Guide pin was then subsequently removed. The alignment jig was then placed for positioning the compression screw. Another small incision was fashioned over the lateral aspect of the femur taking it down through the tensor fascia daya. The vastus lateralis muscle was gently elevated off the femur. The alignment jig was placed on the lateral aspect of the femur. The positioning of the rest of the implant was placed so as to provide optimal position for the compression screw. The guide pin was placed in the central portion of the femoral head and neck. In order to prevent rotation of the basicervical fracture a separate temporary guide pin was placed in the femoral neck and head slightly anterior using the positioning device with the implant. The outer cortex for the compression screw was then drilled and the inner cortex and medullary canal was drilled to 95 mm. It was then tapped since the patient was only a 71 years of age. A 95 mm compression screw was then placed in position. Image intensification confirmed good position of the screw fixation. The fede was subsequently locked proximally and please note the ball-tip guide was removed before placement of the compression screw. Attention was next turned to the distal interlock screw. The leg was placed back in neutral position with the foot rotated into neutral position. A small incision was fashioned over the lateral aspect of the femur in the area of placement of the distal interlock screw. Also, please note, once the fede was locked it was turned back 180 degrees proximally in order to allow for compression of the screw. The distal incision was opened down to the tensor fascia daya and through the vastus lateralis. The distal interlock screw was drilled, measured, and appropriate 36 mm length distal interlock screw was placed. Image intensification pictures confirmed good position of the fede and screws on AP and lateral views. The alignment jig was subsequently removed from the femur. Permanent x-rays were taken with image intensification. The wounds were thoroughly irrigated with antibiotic solution. Please note, the patient had moderate oozing with the procedure and estimated blood loss was 100 mL. Each of the deeper layers of the tensor fascia daya were closed with interrupted sutures of #1 Vicryl and 0-Vicryl. Subcutaneous layers closed with interrupted sutures of 0 and 2-0 Vicryl. I opted to close the patient with lobo due to the fact that she has severe aortic stenosis and in order to expedite the procedure. Xeroform dry sterile dressings were applied. The patient was carefully taken off of the fracture table and placed back in her bed in stable condition. She was taken to recovery room in stable condition. Sponge and needle count correct. The patient will be seen and treated in the intensive care unit postoperatively since she has an arterial line to monitor for severe aortic stenosis. The patient may be weightbearing about 50% of her body weight with a rolling walker. She will need rehab. She also will need to follow up closely with Cardiology for her severe aortic stenosis. She will be seen back in the office in followup in two weeks for staple removal by one of the PAs and I will see her back in followup in six weeks. Again, she should only use about 50% of her body weight partial weightbearing with a rolling walker. ADDITIONAL INFORMATION: INDICATIONS: A 70-year-old female was walking and tripped over another person's dog and tripped over a curb, sustaining a displaced right basicervical/intertrochanteric femoral fracture. There was no loss of consciousness. The patient's major medical problems are that she has severe aortic stenosis. We did receive preoperative medical clearance from Cardiology. Addenda added by SUSHIL 03/26/17 at 7:07am
[2017-03-26] VITALS (8 sets, daily range): BP systolic 96–120; BP diastolic 55–65; PULSE 61–99; RESP 15–21; O2SAT 95–99
[2017-03-26] MEDS: Sodium Chloride LOK Flush 10 mL Syringe IV SCH ×3 (00:10→16:30)
[2017-03-26] MEDS: Acetaminophen IV 1,000 MG in IV Premix 1 EACH IV SCH ×4 (00:10→18:15)
[2017-03-26] MEDS: CeFAZolin Inj 2 GM in IV Premix 1 EACH IV SCH ×2 (00:10→09:08)
[2017-03-26 03:43] LABS: BASOPHILS % (AUTO) 0.1 % (0-3); EOSINOPHILS % (AUTO) 0 % (0-5); MONOCYTES % (AUTO) 5.5 % (4-12); Mean Corpuscular Hemoglobin 33.7 pg (27.0-35.0); Mean Corpuscular Volume 95.7 fL (81-100); NEUTROPHILS % (AUTO) 86.8 % (40-74); Platelet Count 150 bil/L (150-400)
--- NOTE | 2017-03-26 06:46 | NUR ---
Arrival to room 2011 Patient received from PACU at 1940. Report from Maliha WILLSON. Patient A&O on arrival. Family updated on patient condition and plan. Patient has dressing to right hip that is c/d/i. Medicated for pain with Morphine and Tylenol. Q2 turns. Bag of belongings was brought by ADULT HEALTH CLINICAL NURSE SPECIALIST to room and placed in closet.
--- NOTE | 2017-03-26 07:46 | PCM.PNORTH ---
Subjective Date of Service: March 26, 2017 Visit Information: Reason for Visit Right Hip Fracture Surgery/Surgery Date Post-Op Day # 1 Date of Admission: March 24, 2017 at 16:21 Hospital Day # Subjective Patient states she is having some pain in her hip and down her leg but mostly when she moves it. She states she slept soundly throughout the night with no problems. Her only concern today is that she has no been able to get a hold of her job to let them know that she will not be in to work today. Postop General: No Complaints Pain Management: Good Pain Control Objective Exam Objective Patient laying in bed Vital Signs and I/O Vital Sign - Last Date Time Temp Pulse Resp B/P Pulse Ox O2 Delivery O2 Flow Rate FiO2 03/26/17 03:15 Supplement Oxygen 03/26/17 03:01 37.0 86 18 116/61 97 2.00 Intake and Output 03/25/17 03/25/17 03/26/17 Cumulative From/Thru 15:00 23:00 07:00 03/24/17 14:10 - 03/26/17 06:21 Intake Total 500 ml 150 ml 983 ml 2333 ml Output Total 1600 ml 650 ml 4550 ml Balance -1100 ml 150 ml 333 ml -2217 ml Intake Oral 650 ml 1350 ml IV Total 500 ml 150 ml 333 ml 983 ml Output Urine Total 1600 ml 650 ml 4550 ml # Bowel Movements 0 Lab & Micro Results Laboratory Tests Test 03/26/17 03:00 White Blood Count 7.6th/mm3 (3.8-10.1) Red Blood Count 3.50mil/mm3 (3.90-5.20) Hemoglobin 11.8g/dL (12.0-15.6) Hematocrit 33.5% (35.0-46.0) Mean Corpuscular Volume 95.7fL (81-100) Mean Corpuscular Hemoglobin 33.7pg (27.0-35.0) Mean Corpuscular Hemoglobin Concent 35.2% (32.0-37.0) Red Cell Distribution Width 11.8% (12.3-15.4) Platelet Count 150bil/L (150-400) Neutrophils (%) (Auto) 86.8% (40-74) Lymphocytes (%) (Auto) 7.3% (14-46) Monocytes (%) (Auto) 5.5% (4-12) Eosinophils (%) (Auto) 0% (0-5) Basophils (%) (Auto) 0.1% (0-3) Result Diagram: 03/26/17 0300 03/25/17 0503 General Appearance: Alert, Oriented X3, Cooperative, No Acute Distress Extremities: Distal Pulses Palpable, No Compartment Syndrom Noted, Thigh & Calf Soft/Nontender Postop Sensory Motor: Distal Motor Intact, Movement in Toes, Distal Sensation Intact, NVI Distally SURGICAL WOUND : Wound Location/Description Perioperative dressings are dry and intact - mildly saturated but should remain intact until tomorrow unless saturation worsens. Incision General Appearance: No Direct Observation Activity: Ambulate with PT (50% WB with a FWW) Catheters: Urethral 2 Way Cadena Assessment & Plan Impression POD#1 right hip IM nail Problems: Plan Weightbearin% weightbearingwith right lower extremity with a front wheeled walker DVT prophylaxis: 40mg Lovenox SQ QD x3 weeks Physical therapy for transfers, progressive ambulation, strengthening Wound care: Perioperative dressing will be changed to an island dressing tomorrow. It is mildly saturated today - if this worsens throughout the day, dressing may be changed to an island dressing. Analgesia: IV acetaminophen with oral opioids for breakthrough. Discharge plan: Discharge SNF vs home in 1-2 days. Follow-up plan: In 2 weeks at [facility] with JAQUELIN for wound check and at [address] Sierra with x-rays VTE Prophylaxis: Sub-Q Enoxaparin Clementina Sparks PA-C March 26, 2017 07:46
[2017-03-26] MEDS: HYDROcodone-APAP 5-325 mg Tablet PO PRN ×2 (07:57→19:27)
--- NOTE | 2017-03-26 08:32 | PCM.PNMED ---
Subjective Date of Service March 26, 2017 Subjective She is doing well postoperatively. Minimal right hip pain. No chest pain, palpitations or shortness of breath. She was monitored postoperatively for her critical aortic stenosis with an A-line. She has had good pain control and blood pressure control. No difficulty with dyspnea. No overnight events Exam Vital Signs Vital Sign - Last Date Time Temp Pulse Resp B/P Pulse Ox O2 Delivery O2 Flow Rate FiO2 03/26/17 07:52 36.8 79 21 120/60 99 Nasal Cannula 2.00 Intake and Output 03/25/17 03/25/17 03/26/17 Cumulative From/Thru 15:00 23:00 07:00 03/24/17 14:10 - 03/26/17 06:21 Intake Total 500 ml 150 ml 983 ml 2333 ml Output Total 1600 ml 650 ml 4550 ml Balance -1100 ml 150 ml 333 ml -2217 ml Intake Oral 650 ml 1350 ml IV Total 500 ml 150 ml 333 ml 983 ml Output Urine Total 1600 ml 650 ml 4550 ml # Bowel Movements 0 Exam Alert and oriented -3, no distress. Fluent speech Anicteric sclera. Lungs are clear with normal rate and effort Heart is regular with 3/6t murmur. No gallop or rub Abdomen soft nontender, flat Extremities are free of edema. Skin is free of rash or lesions. IVs and Medications Medications Reviewed: Medications were reviewed in detail Lab and Diagnostics Result Diagram: 03/26/17 0300 03/25/17 0503 X-Rays, CTs and MRIs PROCEDURE: X-RAY PELVIS W/LAT HIP (RT) ([id number]) INDICATIONS: pain TECHNIQUE: AP pelvis with lateral view(s) of the right hip(s). COMPARISON: None. IMPRESSION: Intertrochanteric right femoral neck fracture with varus angulation. Dictated by: Julio César Sotelo M.D. on 03/24/2017 at 16:06 PROCEDURE: X-RAY RIGHT FEMUR, TWO VIEWS ([id number]) INDICATIONS: fall IMPRESSION: Intertrochanteric right femoral neck fracture. Severe right knee degenerative change. Osteopenia. Dictated by: Julio César Sotelo M.D. on 03/24/2017 at 16:29 Assessment & Plan 69-year-old lady with past medical history of hypertension and aortic stenosis came to emergency room due to mechanical fall. # Right hip fracture,poa,acute. She is status post a right ORIF with a medullary fede. -Pain control with morphine, and Tylenol. We will start by mouth Vicodin. -DVT prophylaxis with Lovenox #. Mild acute blood loss anemia secondary to fractured, developed over the last 24 hours. We will follow this clinically. # Critical aortic stenosis, POA. -AV 0.6cm2 on echo done 08/27/16 -awaits TTE today -Cardiology Dr. Wilson consulted for preop eval and optimization -Continue metoprolol. The patient is doing well postoperatively. She is stable to transfer off the floor. # Hypertension, POA and stable. -Continue metoprolol at usual dosing. dispo: based on postop course full code,verified with patient Transfer out of CCU to [facility]. VTE Prophylaxis: Sub-Q Enoxaparin VTE Mechanical Devices: Intermittant Pneumatic CD Ad Magana MD March 26, 2017 08:32
--- NOTE | 2017-03-26 10:45 | NUR ---
Transfer to [facility]: Patient is A&O X3, pleasant and cooperative with care. VSS. Denies CP, SOB or dizziness. L AC PIV patent and SL. R hip dressing with small dime size shadow at R lateral upper thigh. Pt reports 5/10 pain to R hip. Chrisman 5-325 PO tab X1 administered patient reports 4/10 pain at reassessment. Continued scheduled acetaminophen IV q6hrs and PRN pain medication. Diet advanced to general and patient tolerated 100% of breakfast without report of N/V/D. Cadena draining pale urine to gravity. Report given to Gonsalo Julien RN and patient transferred to room 1001 via pt bed with all personal belongings. Family at bedside.
--- NOTE | 2017-03-26 12:50 | NUR ---
Social Work: Continued D/C Planning D: EMR reviewed. Pt is a 71 y/o female admitted for right hip fracture per H&P. MACHINE HEEL SEAT LASTER received call from Teresa at [facility] regarding pt's co insurance for SNF stay through [facility]. Per Teresa, pt has 70/30 coinsurance for each day of SNF stay. Teresa's quoted daily rate is $374 (this is variable based on therapies and care required). Pt would be responsible for 30% of this daily rate out of pocket. Teresa states that they are able to accept pt if she is agreeable to payment requirements. MARÍA ELENA met with pt at bedside to relay this information. Pt is agreeable to [facility] and stated understanding of coinsurance requirement. Pt requested MACHINE HEEL SEAT LASTER write out the explanation of benefits on an envelope, SW completed this to pt's stated satisfaction. MACHINE HEEL SEAT LASTER offered to call pt's and designated discharge planning person, pt declined stating that he is out to lunch with their son and she will update him. SW updated plan on whiteboard. T/C to Teresa at [facility] confirming pt's acceptance. Pt will require an authorization prior to discharge. Teresa reports that she is going to start this process. Pt to discharge to [facility] with Stickle to follow. Paperwork in chart, PASRR has been faxed. All updated and agreeable to plan. SW to continue to follow. MACHINE HEEL SEAT LASTER is scheduling appointment at [facility] for a new PCP, MARÍA ELENA will follow-up with pt once appointment has been scheduled. A: Pt for whom a SNF has been deemed medically necessary. P: Pt is agreeable to [facility] and coinsurance requirement. Pt will require an authorization prior to discharge. Teresa reports that she is going to start this process. Pt to discharge to [facility] with Stickle to follow. Paperwork in chart, PASRR has been faxed. All updated and agreeable to plan. SW to continue to follow. JAMA Anand
--- NOTE | 2017-03-26 17:09 | NUR ---
Wound Care Pressure ulcer protocol received, pt seen at bedside. 71 yo female s/p right hip fracture, currently on a low airloss bed, skin assessment reveals no pressure related skin issues at this time.
--- NOTE | 2017-03-26 18:35 | NUR ---
Pain Patient has some pain to the surgical site this shift, states it is kept within a tolerable level with ordered pain medications. Care is ongoing.
[2017-03-27] MEDS: Sodium Chloride LOK Flush 10 mL Syringe IV SCH ×4 (00:06→20:57)
[2017-03-27 00:09] VITALS: BP 112/64; PULSE 81; RESP 18; O2SAT 99
--- NOTE | 2017-03-27 03:02 | NUR ---
Pain/IV Tylenol Last IV Tylenol dose held this shift. Patient receiving Acetaminophen from a couple different medications, and the last IV Tylenol dose would have put the acetaminophen level > 4,000 mg in a 24 hour period. Received 10mg Oxycodone PO for 8/10 right hip pain. Noted to be resting with eyes closed upon reassessment.
[2017-03-27 04:31] VITALS: BP 109/70; PULSE 86; O2SAT 96
--- NOTE | 2017-03-27 07:45 | PCM.PNORTH ---
Subjective Date of Service: March 27, 2017 Visit Information: Reason for Visit Right Hip Fracture Surgery/Surgery Date right hip IM nail 03/25/2017 Post-Op Day # 2 Date of Admission: March 24, 2017 at 16:21 Hospital Day # Subjective Patient complains of incisional pain. She has not really been out of bed yet. Cadena was discontinued this morning. Patient states the plan is for discharge to [facility] to continue her rehabilitation. Postop General: No Complaints, Good Appetite Pain Management: PO, Good Pain Control Objective Exam Objective Patient has just returned to bed following therapy. She took one step forward with a walker. Vital Signs and I/O Vital Sign - Last Date Time Temp Pulse Resp B/P Pulse Ox O2 Delivery O2 Flow Rate FiO2 03/27/17 04:31 36.8 86 109/70 96 Room Air 03/27/17 00:09 18 03/26/17 07:52 2.00 Intake and Output 03/26/17 03/26/17 03/27/17 Cumulative From/Thru 15:00 23:00 07:00 03/24/17 14:10 - 03/27/17 05:36 Intake Total 1300 ml 1200 ml 1190 ml 6023 ml Output Total 750 ml 750 ml 2850 ml 8900 ml Balance 550 ml 450 ml -1660 ml -2877 ml Intake Oral 1200 ml 1200 ml 940 ml 4690 ml IV Total 100 ml 250 ml 1333 ml Output Urine Total 750 ml 750 ml 2850 ml 8900 ml # Bowel Movements 0 0 0 0 Result Diagram: 03/26/17 0300 03/25/17 0503 General Appearance: Alert, Oriented X3, Cooperative, No Acute Distress Extremities: Distal Pulses Palpable, No Compartment Syndrom Noted Postop Sensory Motor: Distal Motor Intact, Distal Sensation Intact, NVI Distally SURGICAL WOUND : Wound Location/Description Right hip: Surgical dressing is removed. There are 3 lateral incisions closed with lobo. There is mild serous drainage. There is moderate swelling and ecchymosis, as expected. Wounds were cleansed with hydrogen peroxide and Island dressings are applied. Incision General Appearance: [place], Well Approximated Activity: Ambulate with PT (50% WB with a FWW) Catheters: None Assessment & Plan Impression POD #2 Status post right hip IM nail Problems: Plan Weightbearin% weightbearing right lower extremity with a front wheeled walker DVT prophylaxis: Lovenox 40 mg SQ QD x3 weeks post op (end 03/15/2017), followed by EC aspirin 325 mg PO BID x 3 weeks Physical therapy for transfers, progressive ambulation, strengthening Wound care: dressing changed by PA today to island dressings Apply knee high PRATIMA hose x 1 month Showering:On 03/29/2017 the patient may shower if the wound has no drainage present. Wound may be uncovered to shower. Let soap and water run over the wound , pat dry and apply a new dressing. Discharge plan: Discharge to SNF tomorrow if medically stable Follow-up: at [facility] at 2 weeks postop with PA for staple removal and wound check. At [address] Sierra, with x-rays Pain Management: [place], oxycodone, morphine sulfate VTE Prophylaxis: Sub-Q Enoxaparin, SCDs Resuscitation Status: CPR: Attempt Resuscitation [place] HillsMarleny Thomson PA-C March 27, 2017 07:44
--- NOTE | 2017-03-27 09:07 | PCM.PNMED ---
Subjective Date of Service March 27, 2017 Subjective Postoperative day 2 Patient denied any chest pain, lightheadedness, that he could have bleeding, cough Vitals remained stable, not hypoxic Complain of mild cramps on bilateral calf, and surgical site Exam Vital Signs Vital Sign - Last Date Time Temp Pulse Resp B/P Pulse Ox O2 Delivery O2 Flow Rate FiO2 03/27/17 04:31 36.8 86 109/70 96 Room Air 03/27/17 00:09 18 03/26/17 07:52 2.00 Intake and Output 03/26/17 03/26/17 03/27/17 Cumulative From/Thru 15:00 23:00 07:00 03/24/17 14:10 - 03/27/17 05:36 Intake Total 1300 ml 1200 ml 1190 ml 6023 ml Output Total 750 ml 750 ml 2850 ml 8900 ml Balance 550 ml 450 ml -1660 ml -2877 ml Intake Oral 1200 ml 1200 ml 940 ml 4690 ml IV Total 100 ml 250 ml 1333 ml Output Urine Total 750 ml 750 ml 2850 ml 8900 ml # Bowel Movements 0 0 0 0 Exam NAD, comfortably laying down on the bed no JVD, MMM, no LAD Great 3 ejection systolic murmur at the right upper sternal border, nl s1 s2 CTAB, no w,c S,ND,NT,normoactive BS+ warm, no edema, pulses 2/2, symmetric, mildly tender on bilateral calf IVs and Medications Medications Reviewed: Medications were reviewed in detail Lab and Diagnostics Result Diagram: 03/26/17 0300 03/25/17 0503 X-Rays, CTs and MRIs PROCEDURE: X-RAY PELVIS W/LAT HIP (RT) ([id number]) INDICATIONS: pain TECHNIQUE: AP pelvis with lateral view(s) of the right hip(s). COMPARISON: None. IMPRESSION: Intertrochanteric right femoral neck fracture with varus angulation. Dictated by: Julio César Sotelo M.D. on 03/24/2017 at 16:06 PROCEDURE: X-RAY RIGHT FEMUR, TWO VIEWS ([id number]) INDICATIONS: fall IMPRESSION: Intertrochanteric right femoral neck fracture. Severe right knee degenerative change. Osteopenia. Dictated by: Julio César Sotelo M.D. on 03/24/2017 at 16:29 Assessment & Plan 69-year-old lady with past medical history of hypertension and aortic stenosis came to emergency room due to mechanical fall. # Right hip fracture,poa,acute. She is status post a right ORIF with a medullary fede. -Pain control with morphine, and Tylenol. We will start by mouth Vicodin. -DVT prophylaxis with Lovenox #. Mild acute blood loss anemia post-op, trend h/h for now # Critical aortic stenosis, POA. AV 0.6cm2 on echo done 08/27/16, TTE 0.75cm2 but higher mGr, required A-line, consulted by Cardiology. -pt remained stable post-op course, -Continue metoprolol. The patient is doing well postoperatively. # Hypertension, POA and stable. -Continue metoprolol at usual dosing. dispo: POD#3, likely tomorrow, continue PT full code,verified with patient VTE Prophylaxis: Sub-Q Enoxaparin, SCDs VTE Mechanical Devices: Intermittant Pneumatic CD Resuscitation Status: CPR: Attempt Resuscitation Time spent 35min Zabrina Rodrigez MD March 27, 2017 09:07
[2017-03-27 09:10] VITALS: PULSE 85
--- NOTE | 2017-03-27 09:49 | PCM.DIORTH ---
Ortho Discharge Instruction Date of Service: March 27, 2017 Dates of Hospitalization Date of Hospital Admission March 24, 2017 at 16:21 Providers Admitting Physician: Osvaldo Macias MD Primary Care Physician: Nopcp Attending Physician: Osvaldo Macias MD Activity Discharge Activity-General: Balance rest and activity, Elevate & ice extremity Right Lower Extremity: % of Weight Bearing (50%) Discharge Assist Device: Front Wheeled Walker Dressing and Incisional Care Discharge Dressing Care: Keep dressing clean, dry & intact Discharge Hygiene: May shower (see instructions below), DO NOT soak incision under water (for 2 weeks), NO bathtub, hot tub or whirlpool (for 2 weeks) Additional Instructions Discharge Instructions Weightbearin% weightbearing right lower extremity with a front wheeled walker DVT prophylaxis: Lovenox 40 mg SQ QD x3 weeks post op (end 03/15/2017), followed by EC aspirin 325 mg PO BID x 3 weeks Physical therapy / OT for transfers, progressive ambulation, strengthening, ADL' s Wound care: change dressing with island dressings every 2-3 days or as needed if saturated Knee high PRATIMA hose x 1 month Showering:On 03/29/2017 the patient may shower if the wound has no drainage present. Wound may be uncovered to shower. Let soap and water run over the wound , pat dry and apply a new dressing. Follow Up Plan Follow Up Plan Follow-up: at [facility] at 2 weeks postop with JAQUELIN for staple removal and wound check. At [address] Sierra, with x-rays Marleny Ordaz PA-C March 27, 2017 09:49
[2017-03-27 09:59] VITALS: BP 105/66; PULSE 88; RESP 18; O2SAT 96
--- NOTE | 2017-03-27 11:49 | NUR ---
Scheduled new patient appointment at [facility] for May check in at 415PM for 430PM appointment with Updated HAZARDOUS MATERIAL SPECIALIST
[2017-03-27] MEDS: HYDROcodone-APAP 5-325 mg Tablet PO PRN ×2 (13:31→21:01)
--- NOTE | 2017-03-27 15:13 | NUR ---
Social Work: Readiness for Discharge D: EMR reviewed. Pt is on day 3 of hospitalization for right hip fracture per H&P. Pt is not medically stable for discharge, anticipate 1-2 more days. T/C to Teresa at [facility] regarding pt's authorization for SNF through [facility]. The authorization has been submitted and should be complete either later today or tomorrow morning. Pt continues to be agreeable to [facility]. MARÍA ELENA informed pt of [facility] appointment for May 31 at 4:15 pm for a 4:30 pm appointment. Pt agreeable to this. MARÍA ELENA wrote this information down for pt. Pt declined having [employer] call pt's spouse to update him regarding the discharge plan as pt's spouse is very hard of hearing over the phone. Pt to discharge to [facility] with Stickle to follow. Paperwork in chart, PASRR has been faxed. All updated and agreeable to plan. SW to continue to follow. A: Pt for whom a SNF has been deemed medically necessary. P: Pt is agreeable to [facility]ointment. Pt to discharge to [facility] with Stickle to follow. Paperwork in chart, PASRR has been faxed. All updated and agreeable to plan. MARÍA ELENA to continue to follow. JAMA Anand Addendum: 03/27/17 at 1557 by DALILA EDWARDS MARÍA ELENA met with pt's Michael at the hospital regarding discharge plan. Michael agreeable to discharge to SNF and PCP appointment. All questions were answered to stated satisfaction. All updated and agreeable to plan. Tiny Edwards MSW
[2017-03-27 16:35] VITALS: BP 106/68; PULSE 90; RESP 20; O2SAT 92
--- NOTE | 2017-03-27 18:23 | NUR ---
[place]/HR Cadena out at 0930, pt tolerated well. Pt able to void 350ml by 1230. When pt up and moving to BSC to void telemetry called that pt's HR was in the 130's. Pt back in bed and HR decreased to 100. Pt asymptomatic. Pt able to work with PT and go to BSC today, needs encouragement to get up and moving. Pain better controlled with [place]. Bed in low, call light in reach, continue q1 hour monitoring.
[2017-03-27 20:54] VITALS: BP 115/73; PULSE 100; RESP 20; O2SAT 97
[2017-03-28 00:43] VITALS: BP 111/71; PULSE 82; RESP 18; O2SAT 95
--- NOTE | 2017-03-28 01:59 | NUR ---
Activity/Pain Patient up to BSC with one person assist. Tolerating well. Receiving [place] two tabs PO for pain management. Highest pain rating 7/10 to right hip so far. Upon reassessment, stated that her hip was feeling better and that pain was improving. Noted to be resting with eyes closed rest of shift so far.
[2017-03-28] MEDS: HYDROcodone-APAP 5-325 mg Tablet PO PRN ×2 (03:30→12:26)
[2017-03-28 04:35] VITALS: BP 109/70; PULSE 79; RESP 20; O2SAT 96
[2017-03-28 05:29] VITALS: PULSE 104
[2017-03-28 05:44] LABS: BASOPHILS % (AUTO) 0.5 % (0-3); EOSINOPHILS % (AUTO) 6.9 % (0-5); MONOCYTES % (AUTO) 9.7 % (4-12); Mean Corpuscular Hemoglobin 33.2 pg (27.0-35.0); Mean Corpuscular Volume 96.9 fL (81-100); NEUTROPHILS % (AUTO) 62.4 % (40-74); Platelet Count 157 bil/L (150-400)
--- NOTE | 2017-03-28 07:55 | PCM.PNORTH ---
Subjective Date of Service: Mar 28, 2017 Visit Information: Reason for Visit Right Hip Fracture Surgery/Surgery Date right hip IM nail 03/25/2017 Post-Op Day # 3 Date of Admission: March 24, 2017 at 16:21 Hospital Day # Subjective Patient complains of incisional pain when moving the leg. She has been up with PT but is having difficulty with partial weightbearing with a walker. Postop General: No Complaints, Good Appetite Pain Management: PO, Good Pain Control Objective Exam Objective Patient is seen lying in bed Vital Signs and I/O Vital Sign - Last Date Time Temp Pulse Resp B/P Pulse Ox O2 Delivery O2 Flow Rate FiO2 03/28/17 05:29 104 03/28/17 04:35 36.8 20 109/70 96 Room Air 03/26/17 07:52 2.00 Intake and Output 03/27/17 03/27/17 03/28/17 Cumulative From/Thru 15:00 23:00 07:00 03/24/17 14:10 - 03/28/17 05:57 Intake Total 1336 ml 1300 ml 8659 ml Output Total 1051 ml 1600 ml 10606 ml Balance 285 ml -300 ml -2892 ml Intake Oral 1256 ml 1300 ml 7246 ml IV Total 80 ml 1413 ml Output Urine Total 1051 ml 1600 ml 68023 ml # Bowel Movements 0 0 Lab & Micro Results Laboratory Tests Test 03/28/17 04:46 White Blood Count 6.2th/mm3 (3.8-10.1) Red Blood Count 3.19mil/mm3 (3.90-5.20) Hemoglobin 10.6g/dL (12.0-15.6) Hematocrit 30.9% (35.0-46.0) Mean Corpuscular Volume 96.9fL (81-100) Mean Corpuscular Hemoglobin 33.2pg (27.0-35.0) Mean Corpuscular Hemoglobin Concent 34.3% (32.0-37.0) Red Cell Distribution Width 11.9% (12.3-15.4) Platelet Count 157bil/L (150-400) Neutrophils (%) (Auto) 62.4% (40-74) Lymphocytes (%) (Auto) 20.0% (14-46) Monocytes (%) (Auto) 9.7% (4-12) Eosinophils (%) (Auto) 6.9% (0-5) Basophils (%) (Auto) 0.5% (0-3) Result Diagram: 03/28/17 0446 03/25/17 0503 General Appearance: Alert, Oriented X3, Cooperative, No Acute Distress Extremities: Distal Pulses Palpable, No Compartment Syndrom Noted, Thigh & Calf Soft/Nontender Postop Sensory Motor: Distal Motor Intact, NVI Distally SURGICAL WOUND : Wound Location/Description Right hip: There is 1 very tiny spot of serous drainage on the proximal bandage. Remainder of the dressing is clean, dry and intact. Activity: Ambulate with PT (50% WB with a FWW) Catheters: None Assessment & Plan Impression POD #3 status post right hip IM nailing Problems: Plan Weightbearin% weightbearing right lower extremity with a front wheeled walker DVT prophylaxis: Lovenox 40 mg SQ QD x3 weeks post op (end 03/15/2017), followed by EC aspirin 325 mg PO BID x 3 weeks Physical therapy for transfers, progressive ambulation, strengthening Wound care: change dressing every 2 days to island dressing, or sooner if saturated Apply knee high PRATIMA hose x 1 month Showering:On 03/29/2017 the patient may shower if the wound has no drainage present. Wound may be uncovered to shower. Let soap and water run over the wound , pat dry and apply a new dressing. Discharge plan: Discharge to SNF if medically stable Ortho will sign off for now. Please call if any hip issues. Follow-up: at [facility] at 2 weeks postop with PA for staple removal and wound check. At [address] Sierra, with x-rays Pain Management: [place], Percocet VTE Prophylaxis: Sub-Q Enoxaparin, SCDs, PRATIMA Hose Resuscitation Status: CPR: Attempt Resuscitation Marleny Ordaz PA-C Mar 28, 2017 07:55
[2017-03-28 08:00] VITALS: PULSE 82
[2017-03-28] MEDS: Sodium Chloride LOK Flush 10 mL Syringe IV SCH (08:23)
[2017-03-28 09:24] VITALS: BP 104/69; PULSE 90; RESP 18; O2SAT 98
[2017-03-28] MEDS ORDERED: Polyethylene Glycol (PEG) 17 Gm Powder PO ONE (09:25)
[2017-03-28] MEDS ORDERED: POLY17PO6 PO (09:26)
[2017-03-28] MEDS ORDERED: SENN-133 PO (09:26)
[2017-03-28] MEDS ORDERED: ENOX40DI8 SUBQ (09:27)
--- NOTE | 2017-03-28 10:41 | NUR ---
[facility] pt's insurance authorization through [facility]. Pt's authorization is [id number] and CM is Leandra Phone number [phone] JAMA Anand
--- NOTE | 2017-03-28 12:25 | NUR ---
Faxed orders to [facility] and placed copy on chart, patient is being transported by [facility] at 1430 per CLERK ENTRY LEVEL.
[2017-03-28 14:08] VITALS: BP 122/86; PULSE 91; RESP 18; O2SAT 96
--- NOTE | 2017-03-28 14:08 | NUR ---
Social Work- Discharge Data: EMR reviewed. Pt is on day 4 of hospitalization for right hip fracture per H&P. Pt is medically ready to discharge today. Discharge orders are active. T/C to Teresa, admissions at [facility], regarding pt's discharge. Teresa is agreeable to accepting pt today. Teresa has received pt's insurance authorization. Pt updated and agreeable to discharge plan. T/C to pt's Michael regarding pt's discharge. Teresa arranged transportation for pt via wheelchair van for 1430. Pt to discharge to [facility] with Stickle to follow, transport via wheelchair van at 1430. RN, UC, pt/family, and [facility] all updated and agreeable to plan. Assessment: Pt for whom SNF is medically necessary secondary to right hip fracture. Plan: Pt to discharge to [facility] with Stickle to follow, transport via wheelchair van at 1430. RN, UC, pt/family, and [facility] all updated and agreeable to plan. JAMA Anand
[2017-03-28] MEDS ORDERED: HYDR-4003 PO ×2 (15:11→15:12)
--- NOTE | 2017-03-28 15:26 | NUR ---
Discharge Note Pt reported good pain control with PRN O'Brien. Pt was able to work with phys therapy today, ambulating in room and able to sit in the chair for meals. Report given to receiving nurse Barker. Pt discharged with all belongings to [facility].
--- NOTE | 2017-03-30 13:44 | PCM.DC.MED ---
Discharge Summary Date of Service Mar 28, 2017 Dates of Hospitalization Date of Hospital Admission March 24, 2017 at 16:21 Date of Discharge: Mar 28, 2017 Providers: Admitting Physician: Osvaldo Macias MD Primary Care Physician: Sahil Attending Physician: Osvaldo Macias MD Diagnosis at Time of Discharge Diagnosis at Time of Discharge acute dx # Right hip fracture secondary to ground level fall, #Mild acute blood loss anemia post-op chronic dx # Critical aortic stenosis, # Hypertension Procedures XRay, CTs & MRIs PROCEDURE: X-RAY PELVIS W/LAT HIP (RT) ([id number]) INDICATIONS: pain TECHNIQUE: AP pelvis with lateral view(s) of the right hip(s). COMPARISON: None. IMPRESSION: Intertrochanteric right femoral neck fracture with varus angulation. Dictated by: Julio César Sotelo M.D. on 03/24/2017 at 16:06 PROCEDURE: X-RAY RIGHT FEMUR, TWO VIEWS ([id number]) INDICATIONS: fall IMPRESSION: Intertrochanteric right femoral neck fracture. Severe right knee degenerative change. Osteopenia. Dictated by: Julio César Sotelo M.D. on 03/24/2017 at 16:29 Brief History HPI obtained by on 03/24 71 year old woman history of severe aortic stenosis and ascending aortic aneurysm admitted with right hip fracture. Patient states that she was walking with her sister's dog yesterday when she tripped and fell. There was no loss of consciousness but she couldn't move due to her hip pain and inability to move her right leg after the fall. Her evaluation showed right basicervical/ intertrochanteric femoral fracture. She is eager to have her hip surgery done. At baseline, patient states that she works 9 hours day in a [employer] and is on her feet most of her time. Denies chest pain, dyspnea, lightheadedness, or syncope. She is followed closely by Dr. Rae. Hospital Course 69-year-old lady with past medical history of hypertension and aortic stenosis came to emergency room due to mechanical fall. # Right hip fracture secondary to ground level fall, pt underwent right ORIF with a medullary fede, no periop complication developed. dvt ppx/pain controlled managed by Orthopedic. #Mild acute blood loss anemia post-op, stable # Critical aortic stenosis, POA. AV 0.6cm2 on echo done 08/27/16, pt was consulted cardiology preoperatively. preop TTE showed 0.75cm2 but higher mGr, pt was inserted A-line for monitoring HD in OR per Cardiology. pt remained stable post-op course, Continue metoprolol. # Hypertension, Continued metoprolol Exam Vital Signs (Last) Date Time Temp Pulse Resp B/P Pulse Ox O2 Delivery O2 Flow Rate FiO2 03/28/17 14:08 36.7 91 18 122/86 96 Room Air 03/26/17 07:52 2.00 Exam NAD, comfortably laying down on the bed no JVD, MMM, no LAD Great 3 ejection systolic murmur at the right upper sternal border, nl s1 s2 CTAB, no w,c S,ND,NT,normoactive BS+ warm, no edema, pulses 2/2 Test 03/24/17 14:40 03/24/17 15:55 03/25/17 05:03 03/28/17 04:46 Hold Purple Top Tube Received (Received) Prothrombin Time 10.2sec (8.1-12.5) Prothromb Time International Ratio 0.95ratio Hold Blue Top Tube Received (Received) Hold Kite Top Tube Received (Received) Hold See Top Tube Received (Received) Urine Color Yellow (YELLOW) Urine Appearance Clear (CLEAR,HAZY) Urine pH 5.5 (5.0-8.0) Urine Specific [place] 1.020 (1.003-1.035) Urine Protein Negativemg/dL (NEG,TRACE) Urine Glucose (UA) Negativemg/dL (NEGATIVE) Urine Ketones 15mg/dL (NEGATIVE) Urine Occult Blood Trace (NEGATIVE) Urine Nitrite Negative (NEGATIVE) Urine Bilirubin Negative (NEGATIVE) Urine Urobilinogen Normalmg/dL (NORMAL) Urine Leukocyte Esterase Negative (NEGATIVE) Urine RBC 0-2/hpf (0-2) Urine WBC 0-5/hpf (0-5) Urine Epithelial Cells Few/hpf (NONE-MOD) Urine Crystals None seen (NONE SEEN) Urine Bacteria Few/hpf (NONE-FEW) Urine Hyaline Casts None/lpf (NONE) Urine Granular Casts None seen (NONE SEEN) Urine Waxy Casts None seen (NONE SEEN) Urine Red Blood Cell Casts None seen (NONE SEEN) Urine White Blood Cell Casts None seen (NONE SEEN) Urine Mucus None seen (None Seen) Urine Trichomonas None seen (NONE SEEN) Urine Yeast None (NONE SEEN) Urinalysis Comment None Urine Culture Reflexed Not indicated Sodium Level 137mEq/L (134-144) Potassium Level 3.6mEq/L (3.5-5.2) Chloride Level 103mEq/L (97-108) Carbon Dioxide Level 21mmol/L (18-29) Blood Urea Nitrogen 16mg/dL (8-27) Creatinine 0.66mg/dL (0.57-1.00) Estimat Glomerular Filtration Rate 126mL/min (>59) Glucose Level 114mg/dL (60-99) Calcium Level 8.3mg/dL (8.5-10.1) Magnesium Level 1.9mg/dL (1.6-2.6) Total Bilirubin 0.7mg/dL (0.0-1.2) Aspartate Amino Transf (AST/SGOT) 19U/L (0-50) Alanine Aminotransferase (ALT/SGPT) 12U/L (0-32) Alkaline Phosphatase 55U/L (25-165) Total Protein 5.8g/dL (6.4-8.4) Albumin 3.4g/dL (3.4-5.0) White Blood Count 6.2th/mm3 (3.8-10.1) Red Blood Count 3.19mil/mm3 (3.90-5.20) Hemoglobin 10.6g/dL (12.0-15.6) Hematocrit 30.9% (35.0-46.0) Mean Corpuscular Volume 96.9fL (81-100) Mean Corpuscular Hemoglobin 33.2pg (27.0-35.0) Mean Corpuscular Hemoglobin Concent 34.3% (32.0-37.0) Red Cell Distribution Width 11.9% (12.3-15.4) Platelet Count 157bil/L (150-400) Neutrophils (%) (Auto) 62.4% (40-74) Lymphocytes (%) (Auto) 20.0% (14-46) Monocytes (%) (Auto) 9.7% (4-12) Eosinophils (%) (Auto) 6.9% (0-5) Basophils (%) (Auto) 0.5% (0-3) Discharge Medications Discharge Medications Enoxaparin Sodium (Enoxaparin Sodium) 40 Mg/0.4 Ml Syringe 40 MG SUBQ Q24 Prescribed by: ZABRINA TAPIA MD Ibuprofen (Ibuprofen) 200 Mg Capsule 200-600 MG PO DAILYWL (Reported) Krill/Om3/Dha/Epa/Om6/Lip/Astx (Krill Oil 1,000 mg Softgel) 1 Each Capsule 2 EACH PO QAM (Reported) Metoprolol Tartrate (Metoprolol Tartrate) 25 Mg Tablet 12.5 MG PO BID (Reported ) As needed Hydrocodone-Acetaminophen 5-325 mg (Hydrocodone-Acetaminophen 5-325 mg) 1 Each Tablet 1-2 TABLET PO Q4H PRN PRN For Moderate Pain Prescribed by: ZABRINA TAPIA MD Methyl Salicylate/Menthol (Icy Hot Cream) 35.4 Gm Cream..g. 1 APPLIC TP BID PRN PRN ARTHRITIS (Reported) TO JOINTS Polyethylene Glycol 3350 (Miralax) 17 Gm Powd.pack 17 GM PO DAILY PRN PRN For Constipation Prescribed by: ZABRINA TAPIA MD Sennosides (Senna) 8.6 Mg Tablet 17.2 MG PO BID PRN PRN For Constipation Prescribed by: ZABRINA TAPIA MD Followup Plan Disposition: SNF Time spent 65min Zabrina Tapia MD Mar 28, 2017 16:47
== END 2017-03-28 15:35 | DRG 481 ==
LOC: SED 14:07 → OSC 16:21 → CCU 03-25 18:38 → PCC 03-26 08:42 → OSC 03-26 10:50
PROVIDERS: ADMIT Internal Medicine; ATTEND Internal Medicine
PROC: 0QS606Z Reposition Right Upper Femur with Intramedullary Internal Fixation Device, Open Approach (ICD-10-PCS; principal; 2017-03-25 13:45)
DX: S72.141A Displaced intertrochanteric fracture of right femur, initial encounter for closed fracture (principal); D62 Acute posthemorrhagic anemia; W01.0XXA Fall on same level from slipping, tripping and stumbling without subsequent striking against object, initial encounter; Y93.01 Activity, walking, marching and hiking; I10 Essential (primary) hypertension; Z87.891 Personal history of nicotine dependence; Y92.480 Sidewalk as the place of occurrence of the external cause; I35.0 Nonrheumatic aortic (valve) stenosis; M06.9 Rheumatoid arthritis, unspecified; I71.4 Abdominal aortic aneurysm, without rupture